=== PATIENT | male | born 1995 | race African-American/Black ===

== ENCOUNTER → 2020-03-15 13:07 | Outpatient (CLI) | payer OTHER, SELFPAY ==
[2020-03-15 13:58] LABS: COVID19 -Nasal RAPID Negative (Negative)
== END ==
PROVIDERS: Visit Provider Physician Assistant
DX: Z20.822 Contact with and (suspected) exposure to COVID-19 (principal)
CPT/HCPCS: 87635

== ENCOUNTER 2020-09-28 14:37 | Emergency (ER) | payer OTHER, MEDICAID, SELFPAY ==
[2020-09-28 15:02] VITALS: BP 115/74; PULSE 60; RESP 16; TEMP 36.3; O2SAT 98; BMI 18.7
--- NOTE | 2020-09-28 15:53 | PC.NURSE ---
right cheek/mouth swollen. root canal right upper molar years ago. over last year increased tenderness and hole to site, pain greatly increased x 1 week.
--- NOTE | 2020-09-28 17:18 | ED_ITS ---
HPI - Dental/Oral General Chief complaint: Dental/Oral Stated complaint: Right Sided Mouth Swelling Time Seen by Provider: 09/28/20 15:30 Source: patient Mode of arrival: Ambulatory Limitations: no limitations History of Present Illness HPI Narrative: 24-year-old male nonsmoker with history of asthma presents with a chief complaint of pain and swelling to the right side of his face and upper teeth for the past few weeks. He has had increasing swelling but denies any drainage or fluctuance. He denies any difficulty swallowing. He has had no fever or chills. He has had dental procedures in the past, most recently a root canal few years ago. Related Data Previous Rx's Medication Instructions Recorded fluticasone propionate 50 1 spray INTRANASAL BID #9.9 ml 03/15/20 mcg/actuation nasal spray,suspension (Flonase Allergy Relief) albuterol sulfate 90 mcg/actuation 1 inh INHALATION Q4-6H PRN #18 g 03/16/20 aerosol inhaler amoxicillin 875 mg-potassium 1 tab PO BID #20 tab 09/28/20 clavulanate 125 mg tablet (Augmentin) ketorolac 10 mg tablet 10 mg PO Q6H PRN #14 tab 09/28/20 Allergies Allergy/AdvReac Type Severity Reaction Status Date / Time No Known Drug Allergies Allergy Unverified 03/16/20 14:33 Review of Systems Review of Systems Narrative: GENERAL: Denies chills, fatigue, malaise, fever, sweats. HEENT: See HPI RESPIRATORY: Denies dyspnea, cough, wheezing, hemoptysis, sputum. CARDIOVASCULAR: Denies chest pain, palpitations, orthopnea, edema, GASTROINTESTINAL: Denies nausea, vomiting, abdominal pain, diarrhea, constipation, melena. : Denies dysuria, frequency, incontinence, hematuria, urinary retention. MUSCULOSKELETAL: denies weakness, joint pain, or bony pain SKIN: Denies rash, skin lesions, or other NEUROLOGIC: Denies weakness, headache, numbness, change in speech, confusion, seizures, incoordination. PSYCHIATRIC: No concerning psychosocial issues. 12 point review of systems is negative except for those stated above Patient History Medical History Allergic rhinitis Asthma Social History Smoking Status: Never smoker Smoking Status: Never smoker alcohol intake frequency: other Substance Use Type: marijuana Exam Narrative Exam Narrative: GEN: AOx3 and in mild distress FACE: Moderate right-sided maxillary swelling without redness, warmth, induration or fluctuance. Intraoral exam notes no swelling or fluctuance, no obvious drainage. EYES: Pupils are equal, round, and reactive to light and accommodation. Extraoccular muscles are intact bilaterally. There is no subconjunctival hemorrhage or exudate. CHEST: Lungs are clear to auscultation bilaterally and free of wheezes, rales, or rhonchi. Heart rate is regular rhythm, there are no murmurs, clicks, rubs, or gallops. There is no chest wall tenderness. ABD: Abdomen is soft and nontender. There is no guarding or rebound. Bowel sounds are normal in all 4 quadrants. There is no mass or organomegaly. EXT: Full painless ROM of all extremities with no loss of sensation or strength. SKIN: Warm, pink, and dry. No erythema or rash Initial Vital Signs Initial Vital Signs: Vital Signs Temperature 97.4 F L 09/28/20 15:02 Pulse Rate 60 09/28/20 15:02 Respiratory Rate 16 09/28/20 15:02 Blood Pressure 115/74 09/28/20 15:02 Pulse Oximetry 98 09/28/20 15:02 Procedures Nerve Block Nerve Block 1: Time out performed: Yes Local Anesthetic: bupivacaine 0.25% Amount of anesthesia used (mL): 2 Side: right Intraoral Nerve Block: superior alveolar Procedure Successful: Yes Patient Tolerated Procedure: Well Complications: none Course Orders Ordered: Discontinued Medications Bupivacaine HCl (Bupivacaine 0.5% (Pf) Vial) 5 ml SUBCUT NOW ONE Stop: 09/28/20 17:16 Last Admin: 09/28/20 17:19 Dose: 5 ml Documented by: MEHRDAD Vital Signs Vital signs: Vital Signs - 8 hr 09/28/20 15:02 09/28/20 17:32 Temperature 97.4 F L Pulse Rate 60 87 Respiratory Rate 16 18 Blood Pressure 115/74 117/74 Pulse Oximetry 98 98 Discharge Plan Departure Patient Disposition: Home Clinical Impression: Dental infection Instructions: Tooth Abscess Activity Restrictions/Additional Instructions: *You have been diagnosed with [dental pain with likely infection, no abscess to drain currently] *What to do: *Please continue to take your regular medications as directed. [ x] New medication prescriptions sent to your pharmacy: [[facility] [address] in [place]] [ ] New medication written as a paper prescription [ ] No new medications given *Please follow up with your primary care provider in 2-3 days, call for an appointment. Let them know you were seen in the Emergency Department and that we ask that you be seen in follow up. We will electronically transmit a record of today's note if your PCP is in our system *If you do not have a primary care provider please contact the [facility] Resource line at [phone]. They will ask some questions about your medical history and help get you set up with a doctor in the community. *Return to Emergency Department if you should have any new, worsening or concerning symptoms, such as [fever greater than 101 F, shaking chills, worsening pain, persistent vomiting or other bothersome symptoms] Prescriptions: New ketorolac 10 mg tablet 10 mg PO Q6H PRN (Reason: pain) Qty: 14 RF: 0 amoxicillin-pot clavulanate [Augmentin] 875-125 mg tablet 1 tab PO BID Qty: 20 RF: 0 No Action fluticasone propionate [Flonase Allergy Relief] 50 mcg/actuation spray,suspension 1 spray intranasal BID Qty: 9.9 RF: 2 albuterol sulfate 90 mcg/actuation HFA aerosol inhaler 1 inh inhalation Q4-6H PRN (Reason: shortness of breath) Qty: 18 RF: 3 Referrals: Chichi Pedraza ARNP [Primary Care Provider] -
[2020-09-28] MEDS: BUPIVACAINE 0.5% (PF) VIAL 5 ML SUBCUT (17:19)
[2020-09-28 17:32] VITALS: BP 117/74; PULSE 87; RESP 18; O2SAT 98
== END 2020-09-28 17:39 | disposition home or self-care (01) ==
PROVIDERS: Emergency Provider Emergency Medicine; PCP Registered Nurse
DX: K04.7 Periapical abscess without sinus (principal)
CPT/HCPCS: 64450; 99281; 99283